=== PATIENT | male | born 1960 | race African-American/Black ===

== ENCOUNTER 2016-06-27 19:38 | Emergency (ER) | payer OTHER ==
[2016-06-27] MEDS ORDERED: AMIODARONE HCL INJ 150 MG/3 ML VIAL IV ONE ×2 (19:46→19:47)
[2016-06-27] MEDS ORDERED: LIDOCAINE 1% INJ-PF (10 MG/ML) 30 ML SDV ONE (19:50)
--- NOTE | 2016-06-27 20:17 | ER Document Report ---
ED General - General Stated Complaint: FALL/HEAD INJURY - Related Data Allergies/Adverse Reactions: No Known Allergies Allergy (Unverified 09/14/12 01:11) Course - Re-evaluation Re-evalutation: 06/27/16 20:17
[2016-06-27] MEDS ORDERED: DIPH/PERTUSS(ACELL)/TETANUS VAC/PF 0.5 ML SYR (>=10YO) IM ONE (20:18)
[2016-06-27] MEDS ORDERED: NORMAL SALINE 1000 ML 1,000 ML IV ONE (20:18)
--- NOTE | 2016-06-27 20:21 | ER Document Report ---
ED General - General Chief Complaint: Syncope Stated Complaint: FALL/HEAD INJURY Notes: Patient is a 55-year-old male without past medical history who presents after having an episode of syncope just prior to arrival. Patient states that he does not recall all the events that he remembers feeling very warm and trying to get to the cooler at his place of work to to cool down. That is lasting recalls. EMS reports the patient was found unconscious lying in the cooler bleeding from the back of his scalp. During transport to the emergency department patient was noted to have a 12 second run of ventricular tachycardia that did spontaneously terminate. He also had a short run of supraventricular tachycardia. Patient denies any history of this in the past nor any cardiac history. States he's otherwise been drinking and eating normally today. He felt fine up until today's events. Denies any medications or drug use. At time of my assessment he is complaining of a dull, aching, constant pain to his left posterior scalp. Touching the area worsens the pain. Nothing improves the pain. He is uncertain of when his last tetanus shot was administered. He denies any focal weakness, numbness, but states he does feel quite confused. He has had not had any vomiting. - Related Data Allergies/Adverse Reactions: No Known Allergies Allergy (Unverified 09/14/12 01:11) Past Medical History - General Information source: Patient - Social History Smoking Status: Never Smoker Frequency of alcohol use: None Drug Abuse: None Lives with: Spouse/Significant other Family History: Reviewed & Not Pertinent Review of Systems - Review of Systems Notes: Constitutional: Negative for fever. HENT: Negative for sore throat. Eyes: Negative for visual changes. Cardiovascular: Negative for chest pain. Positive for syncope Respiratory: Negative for shortness of breath. Gastrointestinal: Negative for abdominal pain, vomiting or diarrhea. Genitourinary: Negative for dysuria. Musculoskeletal: Negative for back pain. Skin: Negative for rash. Neurological: Positive for headache, negative for weakness or numbness. 10 point ROS negative except as marked above and in HPI. Physical Exam - Vital signs Vitals: Resp BP 14 151/80 H 06/27/16 19:43 06/27/16 19:43 Interpretation: Normal Notes: PHYSICAL EXAMINATION: GENERAL: Well-appearing, well-nourished and in no acute distress. HEAD: There is a stellate laceration to the left posterior scalp. EYES: Pupils equal round and reactive to light, extraocular movements intact, sclera anicteric, conjunctiva are normal. ENT: nares patent, oropharynx clear without exudates. Moist mucous membranes. NECK: Normal range of motion, supple without lymphadenopathy LUNGS: Breath sounds clear to auscultation bilaterally and equal. No wheezes rales or rhonchi. HEART: Regular rate and rhythm without murmurs ABDOMEN: Soft, nontender, normoactive bowel sounds. No guarding, no rebound. No masses appreciated. EXTREMITIES: Normal range of motion, no pitting or edema. No cyanosis. NEUROLOGICAL: Face symmetric. Tongue protrudes midline. Extraocular motions intact. Pupils are 2 mm and equally reactive. Normal speech, normal gait. 5 out of 5 strength in both the distal and proximal upper and lower extremities bilaterally. Sensation is grossly intact throughout. Finger to nose testing normal. Pronator drift normal. PSYCH: Normal mood, normal affect. SKIN: Warm, Dry, normal turgor, no rashes or lesions noted. Course - Re-evaluation Re-evalutation: 06/27/16 20:00 Patient presents after having a syncopal episode and striking the back of his head at work. He had runs of ventricular tachycardia as well as supraventricular tachycardia during transport with EMS. He did come emergency traffic today. At time of arrival patient appears confused, is oriented only to urinate his main missing both the president and month. His vitals at time of assessment are within normal limits although rhythm strips from EMS due to demonstrate runs of ventricular tachycardia lasting up to 12 seconds. He does continue to have frequent PVCs but no further beats of ventricular tachycardia. He has been certain on amiodarone infusion after 150 mg bolus. Labs, IV fluids have been started. A CT of the head will be obtained as patient does have an unknown period of retrograde amnesia as he does not recall any of the events leading up to him actually passing out. Patient also had a stellate laceration on the left posterior scalp requiring 6 loraine be placed. He will require admission to the hospital. He remains in guarded condition at this time. 06/27/16 21:10 Labs overall unremarkable, mild CK elevation. CT head and C-spine without clinically significant acute injury. 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 Will contact [facility]. He has remained hemodynamically wnl. No distress. No chest pain. 06/27/16 22:30 I have discussed this case with both the hospitalist and cardiology at [facility] and Dr. Rodriguez with cardiology has accepted the patient for transfer. He remains hemodynamically stable, no further runs of ventricular tachycardia. 06/27/16 23:06 Patient has remained hemodynamically within normal limits, no chest pain or further runs of V. tach. Transport will be arriving shortly to transfer to [facility] and he is stable for transfer at this time. - Vital Signs Vital signs: Temp Pulse Resp BP Pulse Ox 98.4 F 11 L 144/83 H 99 06/27/16 23:15 06/27/16 23:15 06/27/16 23:15 06/27/16 23:15 - Laboratory Result Diagrams: 06/27/16 19:45 06/27/16 19:45 Laboratory results interpreted by me: 06/27/16 06/27/16 06/27/16 19:45 19:45 19:45 RBC 4.30 L Creatine Kinase 820 H CK-MB (CK-2) 10.40 H - Diagnostic Test Radiology reviewed: Image reviewed, Reports reviewed Radiology results interpreted by me: 06/27/16 23:06 CT head: No acute intracranial bleed Procedures - Laceration/Wound Repair Head Wound length (cm): 7 Wound's Depth, Shape: Superficial Laceration pre-procedure: Sterile PPE donned Anesthetic type: 1% Lidocaine Volume Anesthetic (mLs): 3 Wound explored: Clean Irrigated w/ Saline (mLs): 200 Wound Debrided: Minimal Wound Repaired With: Loraine - 6 Number of Sutures: 6 Layer Closure?: No Post-procedure wound care: Sterile dressing applied Post-procedure NV exam normal: Yes Complications: No Critical Care Note - Critical Care Note Total time excluding time spent on procedures (mins): 40 Comments: Critical care time spent obtaining history from patient or surrogate, discussions with consultants, development of treatment plan with patient or surrogate, evaluation of patient's response to treatment, examination of patient , ordering and performing treatments and interventions, ordering and review of laboratory studies, re-evaluation of patient's condition, ordering and review of radiographic studies and review of old charts Discharge - Discharge Clinical Impression: Ventricular tachycardia Syncope Qualifiers: Syncope type: unspecified Qualified Code(s): R55 - Syncope and collapse Condition: Fair Disposition: [facility]
[2016-06-27 20:34] LABS: ABSOLUTE LYMPHOCYTES (AUTO) 1.5 10^3/uL (0.5-4.7); ABSOLUTE MONOCYTES (AUTO) 0.5 10^3/uL (0.1-1.4); ABSOLUTE NEUT (AUTO) 3.3 10^3/uL (1.7-8.2); BASOPHILS % (AUTO) 0.6 % (0-2); EOSINOPHILS % (AUTO) 0.9 % (0-6); HEMATOCRIT 41.2 % (37.9-51.0); HEMOGLOBIN 13.8 g/dL (13.5-17.0); HGB HCT DIFFERENCE 0.2; LYMPHOCYTES % (AUTO) 27.4 % (13-45); MEAN CORPUSCULAR HGB CONC 33.4 g/dL (32.0-36.0); MEAN CORPUSCULAR VOLUME 96 fl (80-97); MONOCYTES % (AUTO) 10.1 % (3-13); RED CELL DISTRIBUTION WIDTH 13.1 % (11.5-14.0); WHITE BLOOD COUNT 5.4 10^3/uL (4.0-10.5)
[2016-06-27 20:45] LABS: ANION GAP 16 (5-19); BLOOD UREA NITROGEN 15 mg/dL (7-20); CALCIUM 9.6 mg/dL (8.4-10.2); CARBON DIOXIDE 24 mmol/L (22-30); CHLORIDE 101 mmol/L (98-107); CREATINE KINASE 820 U/L (55-170); CREATININE RESULT 1.14 mg/dL (0.52-1.25); GLUCOSE 100 mg/dL (75-110); MAGNESIUM 1.9 mg/dL (1.6-2.3); POTASSIUM 4.7 mmol/L (3.6-5.0); SODIUM 141.2 mmol/L (137-145)
[2016-06-27 21:04] LABS: CREATINE KINASE MB 10.4 ng/mL (<4.55); TROPONIN I 0.022 ng/mL
--- NOTE | 2016-06-27 21:16 | ER Document Report ---
ED General - General Chief Complaint: Syncope Stated Complaint: FALL/HEAD INJURY - Related Data Allergies/Adverse Reactions: No Known Allergies Allergy (Unverified 09/14/12 01:11) Physical Exam - Vital signs Vitals: Resp BP 14 151/80 H 06/27/16 19:43 06/27/16 19:43 Course - Vital Signs Vital signs: Temp Pulse Resp BP Pulse Ox 99.0 F 11 L 135/95 H 99 06/27/16 20:16 06/27/16 20:16 06/27/16 20:16 06/27/16 20:16 - Laboratory Result Diagrams: 06/27/16 19:45 06/27/16 19:45 Laboratory results interpreted by me: 06/27/16 06/27/16 06/27/16 19:45 19:45 19:45 RBC 4.30 L Creatine Kinase 820 H CK-MB (CK-2) 10.40 H
[2016-06-27 23:24] VITALS: BP 144/83
--- NOTE | 2016-06-28 16:55 | EKG REPORT ---
SEVERITY:- ABNORMAL ECG - SINUS RHYTHM MULTIPLE ATRIAL PREMATURE COMPLEXES PROBABLE LEFT ATRIAL ABNORMALITY LEFT AXIS DEVIATION CONSIDER ANTERIOR INFARCT : Confirmed by: Sarah Rajput MD 28-Jun-2016 16:53:56
== END 2016-06-27 23:56 | disposition short-term general hospital (02) ==
LOC: ER 19:38
PROC: 0HQ0XZZ Repair Scalp Skin, External Approach (ICD-10-PCS; principal; 2016-06-27)
DX: S01.91XA Laceration without foreign body of unspecified part of head, initial encounter (principal); R55 Syncope and collapse; I47.2 Ventricular tachycardia; W19.XXXA Unspecified fall, initial encounter
CPT/HCPCS: 93005; 99291; 96360; 90471; 36415; 82553; 82550; 83735; 84443; 85025; 80048; 84484; 70450; 72125; 90715; 93010; 12002; J7030